=== PATIENT | male | born 1975 | race African-American/Black ===

== ENCOUNTER 2017-04-25 11:51 | Emergency (ER) | payer OTHER ==
[2017-04-25 11:59] VITALS: BP 129/82; PULSE 105; TEMP 98; BMI 48.8
[2017-04-25] MEDS ORDERED: INDOMETHACIN 50 MG CAPSULE PO ONE (13:03)
[2017-04-25] MEDS ORDERED: COLCHICINE 0.6 MG TABLET (FP) PO ONE ×2 (13:07→14:09)
[2017-04-25] MEDS ORDERED: COLCHICINE 0.6 MG TABLET (FP) ONE (13:09)
--- NOTE | 2017-04-25 13:24 | PDOC ---
History of Present Illness - General Chief Complaint: Pain Stated Complaint: GOUT/ LT FOOT Time Seen by Provider: 04/25/17 12:53 History Source: Patient Exam Limitations: No Limitations - History of Present Illness Initial Comments: 04/25/17 13:11 CHIEF COMPLAINT: Left foot pain at the base of the great toe. HISTORY OF PRESENT ILLNESS: Patient is a 41-year-old male history of gout, hypertension, asthma, obesity presents with left great toe pain for 4 days. Patient reports that he has a history of gout and he feels the same he ran out of his indomethacin at home. Lower Ext. Injury Location - Specific Injury Location Foot: left foot pain, left foot swelling Extremity Pain Location - Extremity Pain Location Extremity Pain Locations: left: foot Past History - Past Medical History Allergies/Adverse Reactions: Allergies Allergy/AdvReac Type Severity Reaction Status Date / Time Penicillins Allergy Verified 04/25/17 11:59 Home Medications: Ambulatory Orders Indomethacin 50 mg PO TID #18 capsule 04/25/17 Asthma: Yes COPD: No HTN: Yes Other medical history: GOUT, OBESITY - Immunization History Immunization Up to Date: Yes - Suicide/Smoking/Psychosocial Hx Smoking Status: No Smoking History: Never smoked Have you smoked in the past 12 months: No Number of Cigarettes Smoked Daily: 0 Information on smoking cessation initiated: No Hx Alcohol Use: No Drug/Substance Use Hx: No Substance Use Type: None Review of Systems - Review of Systems Constitutional: No: Symptoms Reported Respiratory: No: Symptoms reported Cardiac (ROS): No: Symptoms Reported Musculoskeletal: Yes: Gout, Joint Pain. No: Joint Swelling Integumentary: No: Bruising, Erythema Neurological: No: Symptoms reported, Paresthesia, Tingling, Tremors Hematologic/Lymphatic: No: Symptoms Reported All Other Systems: Reviewed and Negative *Physical Exam - Vital Signs Last Vital Signs Temp Pulse Resp BP Pulse Ox 98 F 105 H 19 129/82 100 04/25/17 11:56 04/25/17 11:56 04/25/17 11:56 04/25/17 11:56 04/25/17 11:56 - Physical Exam General Appearance: Yes: Appropriately Dressed. No: Apparent Distress Musculoskeletal: positive: Decreased Range of Motion (related to pain) Extremity: positive: Swelling Integumentary: positive: Normal Color, Dry. negative: Erythema, Swelling, Ecchymosis, Bruising Neurologic: positive: Alert, Normal Mood/Affect Medical Decision Making - Medical Decision Making 04/25/17 13:25 A/P: Patient with clinical signs of gout uric acid sent however will treat with colchicine 1.2 milligrams then again 0.6 mg one hour. Uric acid is Laboratory Results - last 24 hr 04/25/17 13:00 Uric Acid 9.3 H I will discharge patient home on indomethacin will follow-up with PMD, 2 Percocet given prior to discharge. I discussed the physical exam findings, ancillary test results and final diagnoses with the patient. I answered all of the patient's questions. The patient was satisfied with the care received and felt comfortable with the discharge plan and treatment plan. The patient will call to arrange follow-up and will return to the Emergency Department with any new, persistent or worsening symptoms. 04/25/17 14:30 *DC/Admit/Observation/Transfer Diagnosis at time of Disposition: Gout flare Qualifiers: Gout site: foot Gout etiology: unspecified cause Laterality: left Qualified Code(s): M10.9 - Gout, unspecified - Discharge Dispostion Disposition: HOME Condition at time of disposition: Stable Admit: No - Prescriptions Prescriptions: Indomethacin 50 mg PO TID #18 capsule - Referrals Referrals: Javier Sesay MD [Primary Care Provider] - - Patient Instructions Printed Discharge Instructions: Gout (Alternative Therapy), Gout Additional Instructions: Please watch diet. Please note the medication given to him in the emergency department may cause diarrhea, this will help to decrease the uric acid levels. Take indomethacin at home, start this evening for pain Follow-up with PMD in 2 days if symptoms persist - Post Discharge Activity Forms/Work/School Notes: Back to Work
== END 2017-04-25 15:02 | disposition home or self-care (01) ==
LOC: JERFT 11:51
DX: M10.9 Gout, unspecified (principal); I10 Essential (primary) hypertension; E66.9 Obesity, unspecified; Z68.42 Body mass index [BMI] 45.0-49.9, adult; J45.909 Unspecified asthma, uncomplicated
CPT/HCPCS: 36415; 84550; 99281-25

== ENCOUNTER 2023-10-19 17:15 | Emergency (ER) | payer OTHER ==
[2023-10-19 17:30] VITALS: BP 152/99; PULSE 94; RESP 16; TEMP 98.6; BMI 37.6
[2023-10-19] MEDS ORDERED: ALBUTEROL SO4 2.5/IPRATROPIUM 0.5 INH SOL 3 ML VIAL.NEB. NEB ONE (17:45)
[2023-10-19] MEDS: ALBUTEROL SO4 2.5/IPRATROPIUM 0.5 INH SOL 3 ML VIAL.NEB. NEB ONE (17:49)
[2023-10-19] MEDS ORDERED: DEXAMETHASONE 4 MG TABLET (FP) ONE (18:03)
[2023-10-19] MEDS ORDERED: DEXAMETHASONE SOD PHOSPHATE 10 MG/1 ML VIAL ONE (18:04)
[2023-10-19] MEDS: DEXAMETHASONE SOD PHOSPHATE 10 MG/1 ML VIAL PO ONE (18:11)
[2023-10-19 18:55] LABS: THROAT:GRP A STREP NOT DETECTED (NOTDETECTED)
== END 2023-10-19 19:13 | disposition home or self-care (01) ==
LOC: JER 17:15 → JERFT 17:15
PROC: 3E0F7GC Introduction of Other Therapeutic Substance into Respiratory Tract, Via Natural or Artificial Opening (ICD-10-PCS; principal; 2023-10-19)
DX: R05.9 Cough, unspecified (principal); J45.901 Unspecified asthma with (acute) exacerbation; J06.9 Acute upper respiratory infection, unspecified; B97.89 Other viral agents as the cause of diseases classified elsewhere; J02.9 Acute pharyngitis, unspecified; R09.89 Other specified symptoms and signs involving the circulatory and respiratory systems; Z20.822 Contact with and (suspected) exposure to COVID-19
CPT/HCPCS: 0241U-QW; 87651; 99283-25; J1100

== ENCOUNTER 2023-12-10 00:14 | Observation (INO) | payer OTHER ==
[2023-12-10] MEDS: ALBUTEROL SO4 2.5/IPRATROPIUM 0.5 INH SOL 3 ML VIAL.NEB. NEB SCH ×2 (01:34→10:24)
[2023-12-10] MEDS: MAGNESIUM SULF 50% (8.12 MEQ/2 ML-1 GM VIAL) IVPB ONE (03:07)
[2023-12-10] MEDS: methylPREDNISolone NA SUCC 125 MG/2 ML VIAL IVPB ONE ×2 (03:07→03:28)
[2023-12-10] MEDS ORDERED: ALBUTEROL SO4 2.5/IPRATROPIUM 0.5 INH SOL 3 ML VIAL.NEB. NEB ONE ×4 (03:09→21:05)
[2023-12-10] MEDS ORDERED: MAGNESIUM SULFATE IN WATER 2 GM/50 ML IVPB IVPB ONE (03:09)
[2023-12-10] MEDS ORDERED: methylPREDNISolone NA SUCC 125 MG/2 ML VIAL ONE (03:09)
[2023-12-10] MEDS ORDERED: ACETAMINOPHEN INJECTION 100 ML ONE (03:28)
[2023-12-10] MEDS: ACETAMINOPHEN 1000 MG/100 ML BAG IVPB ONE (03:30)
[2023-12-10] MEDS: ALBUTEROL SO4 2.5/IPRATROPIUM 0.5 INH SOL 3 ML VIAL.NEB. NEB ONE (03:30)
[2023-12-10 03:33] LABS: BASO % 0.4 % (0-2.0); HEMATOCRIT 43.9 % (35.4-49); HEMOGLOBIN 14.4 GM/dL (11.7-16.9); LYMPH % 2.9 % (8-40); MCH 28.9 pg (25.7-33.7); MCHC 32.7 g/dl (32.0-35.9); MEAN CELL VOLUME 88.4 fl (80-96); MEAN PLT VOLUME 8.3 fl (7.5-11.1); NEUT % 90.7 % (42.8-82.8); PLATELET COUNT 315 10^3/uL (134-434); RBC 4.97 M/mm3 (4.00-5.60); WHITE BLOOD COUNT 13.8 K/mm3 (4.0-10.0)
[2023-12-10 03:47] LABS: POTASSIUM 4.2 mmol/L (3.5-5.1)
[2023-12-10 03:50] LABS: ALBUMIN 3.7 g/dl (3.4-5.0); BLOOD UREA NITROGEN 26.2 mg/dL (7-18); MAGNESIUM 2.2 mg/dL (1.8-2.4)
[2023-12-10] MEDS: MAGNESIUM SULFATE IN WATER 2 GM/50 ML IVPB IVPB ONE (03:50)
[2023-12-10 03:53] LABS: CREATININE 1.7 mg/dL (0.55-1.3)
[2023-12-10 03:55] LABS: BILIRUBIN,TOTAL 0.6 mg/dL (0.2-1); CALCIUM 9.6 mg/dL (8.5-10.1)
[2023-12-10] MEDS ORDERED: ALBUTEROL SO4 0.083% IH SOL 2.5 MG/3 ML VIAL.NEB. NEB PRN (07:50)
[2023-12-10] MEDS ORDERED: amLODIPine BESYLATE 5 MG TABLET (FP) ONE (09:49)
[2023-12-10] MEDS ORDERED: MONTELUKAST NA 10 MG TABLET ONE (09:49)
[2023-12-10] MEDS: amLODIPine BESYLATE 5 MG TABLET (FP) PO SCH (10:24)
[2023-12-10] MEDS: BUDESONIDE/FORMETEROL FUMARATE 160/4.5 mcg INHALER IH SCH (10:25)
[2023-12-10] MEDS: MONTELUKAST NA 10 MG TABLET PO SCH (10:25)
[2023-12-10] MEDS: ACETAMINOPHEN 500 MG TABLET (FP) PO PRN (14:09)
[2023-12-10] MEDS ORDERED: methylPREDNISolone NA SUCC 40 MG/1 ML VIAL ONE ×2 (15:44→18:09)
[2023-12-10] MEDS: methylPREDNISolone NA SUCC 40 MG/1 ML VIAL IVPUSH SCH (15:52)
[2023-12-10] MEDS ORDERED: guaiFENesin/CODEINE 10 ML UNIT-DOSE CUPS ONE (16:43)
[2023-12-10] MEDS ORDERED: guaiFENesin/D-METHORPHAN HB 10 ML UNIT-DOSE CUPS ONE (16:45)
[2023-12-10] MEDS: guaiFENesin 200 MG/10 ML 10 ML UNIT-DOSE CUPS PO PRN (16:51)
[2023-12-11] MEDS ORDERED: ALBUTEROL SO4 2.5/IPRATROPIUM 0.5 INH SOL 3 ML VIAL.NEB. NEB ONE ×6 (00:05→20:10)
[2023-12-11] MEDS ORDERED: methylPREDNISolone NA SUCC 40 MG/1 ML VIAL ONE (02:19)
[2023-12-11 06:02] LABS: HEMATOCRIT 41.9 % (35.4-49); HEMOGLOBIN 13.7 GM/dL (11.7-16.9); MCH 28.9 pg (25.7-33.7); MCHC 32.7 g/dl (32.0-35.9); MEAN CELL VOLUME 88.5 fl (80-96); MEAN PLT VOLUME 8.5 fl (7.5-11.1); PLATELET COUNT 292 10^3/uL (134-434); RBC 4.74 M/mm3 (4.00-5.60); RDW 15.1 % (11.9-15.9); WHITE BLOOD COUNT 11.5 K/mm3 (4.0-10.0)
[2023-12-11 06:09] LABS: POTASSIUM 4.5 mmol/L (3.5-5.1)
[2023-12-11 06:13] LABS: CALCIUM 8.9 mg/dL (8.5-10.1)
[2023-12-11 06:14] LABS: BLOOD UREA NITROGEN 31.5 mg/dL (7-18)
[2023-12-11 06:17] LABS: CREATININE 1.6 mg/dL (0.55-1.3)
[2023-12-11] MEDS ORDERED: predniSONE 20 MG TABLET (UD) ONE (08:29)
[2023-12-11] MEDS ORDERED: amLODIPine BESYLATE 5 MG TABLET (FP) ONE (08:29)
[2023-12-11] MEDS ORDERED: MONTELUKAST NA 10 MG TABLET ONE (08:30)
[2023-12-11] MEDS: LACTATED RINGERS SOLUTION 1,000 ML/1,000 ML INFUS.BAG IV SCH (08:55)
[2023-12-11 08:58] LABS: ANISOCYTOSIS 0; MACROCYTOSIS 0
[2023-12-11] MEDS: predniSONE 20 MG TABLET (UD) PO SCH (09:05)
[2023-12-11] MEDS ORDERED: ACETAMINOPHEN 500 MG TABLET (FP) ONE (09:08)
[2023-12-11] MEDS: traMADol HCL 50 MG TABLET PO ONE ×2 (11:49→17:56)
[2023-12-11] MEDS: ALBUTEROL SO4 2.5/IPRATROPIUM 0.5 INH SOL 3 ML VIAL.NEB. NEB SCH (11:50)
[2023-12-11 13:34] VITALS: RESP 18
[2023-12-11] MEDS ORDERED: traMADol HCL 50 MG TABLET ONE (17:51)
[2023-12-11 21:40] VITALS: BMI 40.6
[2023-12-11] MEDS: ACETAMINOPHEN 500 MG TABLET (FP) PO PRN (22:18)
[2023-12-12] MEDS: MELATONIN 5 MG TABLETS PO ONE (02:40)
[2023-12-12] MEDS: hydrOXYzine PAMOATE 25 MG CAPSULE (FP) PO ONE (02:40)
[2023-12-12 03:25] VITALS: TEMP 98.2
[2023-12-12 07:34] VITALS: BP 136/93; PULSE 79
[2023-12-12 08:22] LABS: HEMATOCRIT 42.3 % (35.4-49); HEMOGLOBIN 13.7 GM/dL (11.7-16.9); MCH 28.6 pg (25.7-33.7); MCHC 32.3 g/dl (32.0-35.9); MEAN CELL VOLUME 88.6 fl (80-96); MEAN PLT VOLUME 8.1 fl (7.5-11.1); PLATELET COUNT 294 10^3/uL (134-434); RBC 4.77 M/mm3 (4.00-5.60); RDW 14.9 % (11.9-15.9); WHITE BLOOD COUNT 10.8 K/mm3 (4.0-10.0)
[2023-12-12 08:38] LABS: POTASSIUM 4.2 mmol/L (3.5-5.1)
[2023-12-12 08:40] LABS: BLOOD UREA NITROGEN 23.8 mg/dL (7-18); CALCIUM 8.8 mg/dL (8.5-10.1); MAGNESIUM 2.4 mg/dL (1.8-2.4)
[2023-12-12 08:44] LABS: CREATININE 1.2 mg/dL (0.55-1.3)
[2023-12-12] MEDS: amLODIPine BESYLATE 10 MG TABLET (FP) PO SCH (10:32)
== END 2023-12-12 13:52 | disposition home or self-care (01) ==
LOC: JER 00:14 → JERBED 02:57 → J7W 12-11 21:08
PROVIDERS: ADMIT Internal Medicine; ATTEND Internal Medicine
PROC: 3E033NZ Introduction of Analgesics, Hypnotics, Sedatives into Peripheral Vein, Percutaneous Approach (ICD-10-PCS; principal; 2023-12-10)
PROC: 3E0F7GC Introduction of Other Therapeutic Substance into Respiratory Tract, Via Natural or Artificial Opening (ICD-10-PCS; 2023-12-10)
PROC: 3E0337Z Introduction of Electrolytic and Water Balance Substance into Peripheral Vein, Percutaneous Approach (ICD-10-PCS; 2023-12-10)
PROC: 3E033GC Introduction of Other Therapeutic Substance into Peripheral Vein, Percutaneous Approach (ICD-10-PCS; 2023-12-10)
DX: N17.9 Acute kidney failure, unspecified (principal); J45.41 Moderate persistent asthma with (acute) exacerbation; J20.5 Acute bronchitis due to respiratory syncytial virus; I10 Essential (primary) hypertension; H54.40 Blindness, one eye, unspecified eye; R00.2 Palpitations; Z88.0 Allergy status to penicillin
CPT/HCPCS: 0241U-QW; 36415; 71046-TC-FY; 80048; 80053; 83735; 84100; 85025; 85027; 94640; 96361; 96365; 96375; 96376; 99285-25; G0378; J0131